=== PATIENT | female | born 1985 | race Two or more races ===

== ENCOUNTER 2018-01-29 19:42 | Emergency (ER) | payer MEDICAID, OTHER ==
[~2018-01-29] VITALS: Ht 154.9 cm; Wt 65.8 kg
[2018-01-29] MEDS ORDERED: IBUPROFEN 600 MG TAB PO ONE (20:00)
[2018-01-29 20:17] LABS: Basophils # (auto) 0 uL; Basophils % (auto) 0.2 % (0.0-2.0); Eosinophils # (auto) 0 uL; Eosinophils % (auto) 0.1 % (0.0-7.0); Hematocrit 34.2 % (36.0-46.0); Lymphocytes # (auto) 0.8 uL; Lymphocytes % (auto) 9.4 % (10.0-50.0); Mean Corpuscular Hemoglobin 29.9 pg (28.0-32.0); Mean Corpuscular Hgb Conc. 35.2 g/dL (32.0-36.0); Mean Corpuscular Volume 85.1 fL (80.0-100.0); Monocytes # (auto) 0.7 uL; Monocytes % (auto) 8.2 % (0.0-12.0); Neutrophils # (auto) 7.4 uL; Neutrophils % (auto) 82.1 % (37.0-80.0); Platelet Count (auto) 238 10^3/uL (140-450); Red Blood Cells 4.02 10^6/uL (4.0-5.20); Red Cell Distribution Width 12.9 % (11.8-14.3)
[2018-01-29 20:33] LABS: Urine Bacteria MOD /hpf (None Seen); Urine Blood TRACE /uL (Negative); Urine Specific Gravity 1.008 (1.001-1.035); Urine WBC 30 /hpf (0 - 5); Urine WBC Clumps PRESENT /hpf (None Seen)
[2018-01-29 20:33] LABS: INR 0.87 (0.9-1.15); Partial Thromboplastin Time 27.8 sec (23.78-33.04); Prothrombin Time 9.4 sec (9.27-12.13)
[2018-01-29 20:41] LABS: Albumin 2.2 g/dL (3.4-5.0); BUN/Creatinine Ratio 11.3; Calcium 7.9 mg/dL (8.5-10.1)
[2018-01-29 20:44] LABS: Bilirubin, Total 0.6 mg/dL (0.2-1.0); Total Protein 6.8 g/dL (6.4-8.2)
[2018-01-29 21:02] LABS: Potassium 2.7 mmol/L (3.5-5.1)
[2018-01-29] MEDS ORDERED: SODIUM CHLORIDE 0.9% 1,000 ML IV ONE (21:30)
[2018-01-29 22:43] VITALS: BP 102/59
== END 2018-01-30 | disposition home or self-care (01) ==
LOC: ER 19:42
DX: O23.41 Unspecified infection of urinary tract in pregnancy, first trimester (principal); Z3A.01 Less than 8 weeks gestation of pregnancy
CPT/HCPCS: 36415; 76801; 80053; 81001; 81025; 82150; 83690; 84702; 85025; 85610; 85730; 87040; 87077; 87186; 99285; J7030